=== PATIENT | male | born 1975 | race Caucasian/White ===

== ENCOUNTER 2023-03-21 06:13 | Day surgery (SDC) | payer OTHER, SELFPAY ==
[2023-03-21] VITALS (9 sets, daily range): BP systolic 99–127; BP diastolic 65–87; BMI 35.3
[2023-03-21] MEDS: TYLENOL 1000 MG PO (06:41)
[2023-03-21] MEDS: NORMOSOL-R 1000 IV (06:41)
--- NOTE | 2023-03-21 10:14 | W.IMMPOSTOP ---
Addendum entered and electronically signed by Lyle Ortega MD 03/31/23 07:27:
Correction: note entered in error, wrong patient
Original Note:
Surgical Immed Post Op Note
-
Primary Surgeon: Shannon
Assisting: Megan
Pre-op Diagnosis: Recurrent incarcerated right inguinal hernia
Post-op Diagnosis: Same
Procedure Performed: Robot assisted laparoscopic repair of recurrent incarcerated right inguinal hernia
Anesthesia Type: GETA
Specimen / Cultures: None
Estimated Blood Loss: 10cc
Complications: None immediate
Operative Findings: Prior plug repair, plug was scarred in at the tubercle and was carefully taken down uneventfully; recurrence into the femoral space; XL MID 3D Max
--- NOTE | 2023-03-21 10:16 | OR.RPT ---
Addendum entered and electronically signed by Lyle Ortega MD 03/31/23 07:28:
Addendum: This will serve as immediate op note
Original Note:
Operative Report
Operative Report
Primary Surgeon: Shannon
Assisting: Megan
Pre-op Diagnosis: left flank lipoma
Post-op Diagnosis: Same
Procedure Performed: Excision of left flank lipoma
Anesthesia Type: Mac local
Specimen / Cultures: Lipoma
Estimated Blood Loss: 10cc
Complications: None immediate
Operative Findings: Intramuscular lipoma excised in toto, est size [id number]
--- NOTE | 2023-03-21 10:17 | OR.RPT ---
Operative Report
Operative Report
Primary Surgeon: Shannon
Assisting: Megan
Pre-op Diagnosis: left flank lipoma
Post-op Diagnosis: Same
Procedure Performed: Excision of left flank lipoma
Anesthesia Type: Mac local
Specimen / Cultures: Lipoma
Estimated Blood Loss: 10cc
Complications: None immediate
Operative Findings: Intramuscular lipoma excised in toto, est size [id number]
Date of Surgery:� 03/21/23
Indications: 47M with symptomatic lipoma. Excision under MAC local was planned.
PROCEDURE:� After informed consent was obtained, the patient was brought to the operative suite and placed in right lateral decubitus position on the operating table. The patient was sedated, prepped and draped in the usual sterile manner and an
adequate local anesthetic was administered using lidocaine 1% with epinephrine.
A full thickness elliptical incision was made over the mass and carried down to the capsule. The capsule was freed from surrounding structures with blunt and sharp dissection as well as electrocautery. The lipoma was delivered through the wound and
deep attachments were controlled with electrocautery. It was intramuscular. The mass was passed off the table as specimen. The wound was then irrigated with copious sterile saline, and hemostasis was obtained using Bovie electrocautery. The muscle
was approximated with 3-0 Vicryl and then the skin was closed with deep dermal interrupted sutures and 4-0 monocryl suture in a subcuticular fashion. Topical skin glue was then applied.
The patient tolerated the procedure well and was taken to the PACU in stable condition. I was present for and performed all brown portions of the procedure. The resident assisted with exposure and skin closure.
== END 2023-03-21 09:26 | disposition home or self-care (01) ==
LOC: SDS 06:13
PROVIDERS: ATTENDING PHYSICIAN Surgery
DX: D17.1 Benign lipomatous neoplasm of skin and subcutaneous tissue of trunk (principal)
CPT/HCPCS: 21933; 88304